=== PATIENT | female | born 1960 | race Caucasian/White ===

== ENCOUNTER → 2017-02-03 | Outpatient (CLI) | payer OTHER ==
[~2017-02-03] MED LIST: ASPIRIN LO-DOSE81 MG PO; CLARITIN10 M3 PO; CORDARONE,PACE200 MG PO; COREG25 MG PO; COUMADIN ** IA5 MG PO; COUMADIN **IA2.5 MG PO; COUMADIN6 MG PO; GLUCOPHAGE500 MG PO; HYZAAR 100-12.1 EACH PO; LEVOTHROID (S125 MCG PO; LEVOTHROID (S150 MCG PO; LIPITOR20 M1 PO; LOPRESSOR50 MG PO; ZOLOFT25 MG PO
== END | disposition disaster alternative care site (69) ==
LOC: GBCOE 09:30
DX: N63 Unspecified lump in breast (principal)
CPT/HCPCS: G0204; G0279

== ENCOUNTER → 2017-02-09 | Outpatient (CLI) | payer OTHER ==
[2017-02-09 16:44] LABS: BASOPHIL # 0.1 K/uL (0.0-0.2); BASOPHIL % 0.9 %; EOSINOPHIL # 0.2 K/uL (0.0-0.5); EOSINOPHIL % 3.5 %; HEMATOCRIT 38.2 % (33.0-46.0); HEMOGLOBIN 12.5 g/dL (10.0-15.0); IMMATURE GRANULOCYTE % 0.2 %; LYMPHOCYTE # 1.1 K/uL (0.8-4.0); LYMPHOCYTE % 20.5 %; MCH 31.5 pg (27.0-34.0); MCHC 32.7 gm/dL (32.0-36.5); MCV 96.2 fl (83.0-98.0); MONOCYTE # 0.4 K/uL (0.0-1.0); MONOCYTE % 7.3 %; MPV 11.7 fl (9.4-12.4); NEUTROPHIL # (ANC) 3.7 K/uL (1.8-7.8); NEUTROPHIL % 67.6 %; NRBC % 0 /100WBC (0-0.00); PLATELET COUNT 167 K/uL (150-450); RBC 3.97 M/uL (3.50-5.50); RDW-CV 14.9 % (11.9-14.6); WBC 5.5 K/uL (4.0-11.0)
[2017-02-09 16:57] LABS: ALBUMIN 4.3 gm/dL (3.5-5.0); ALK PHOS 76 IU/L (33-138); ALT 25 IU/L (12-78); ANION GAP 12.7 (10.0-19.0); AST 23 IU/L (10-40); BLOOD UREA NITROGEN 17 mg/dL (6-24); CALCIUM 9.6 mg/dL (8.5-10.5); CHLORIDE 103 mMol/L (96-110); CO2 27 mMol/L (22-32); CREATININE 0.9 mg/dL (0.5-1.1); ESTIMATED GFR (MDRD EQUATION) > 60; POTASSIUM 3.7 mMol/L (3.7-5.1); SODIUM 139 mMol/L (135-145); TOTAL PROTEIN 8.5 g/dL (6.0-8.4)
== END | disposition disaster alternative care site (69) ==
LOC: LNHI 16:35
PROVIDERS: Internal Medicine Interventional Cardiology
DX: Z95.2 Presence of prosthetic heart valve (principal); I48.3 Typical atrial flutter; I25.10 Atherosclerotic heart disease of native coronary artery without angina pectoris; I10 Essential (primary) hypertension

== ENCOUNTER → 2017-03-13 | Outpatient (CLI) | payer OTHER ==
[2017-03-13 14:55] LABS: INR - (THERAPEUTIC) 1.77 (0.92-1.07); PROTIME 18.7 SECONDS (9.8-11.4)
== END | disposition disaster alternative care site (69) ==
LOC: GLAB 14:28
PROVIDERS: Internal Medicine Interventional Cardiology
DX: I48.0 Paroxysmal atrial fibrillation (principal); Z95.2 Presence of prosthetic heart valve; Z79.01 Long term (current) use of anticoagulants

== ENCOUNTER → 2017-03-21 | Outpatient (CLI) | payer OTHER ==
[2017-03-21 14:13] LABS: INR - (THERAPEUTIC) 2.75 (0.92-1.07); PROTIME 29.2 SECONDS (9.8-11.4)
== END | disposition disaster alternative care site (69) ==
LOC: GLAB 12:00
PROVIDERS: Internal Medicine Interventional Cardiology
DX: I48.0 Paroxysmal atrial fibrillation (principal); Z95.2 Presence of prosthetic heart valve; Z79.01 Long term (current) use of anticoagulants

== ENCOUNTER → 2017-04-14 | Outpatient (CLI) | payer OTHER ==
[2017-04-14 13:37] LABS: INR - (THERAPEUTIC) 1.6 (0.92-1.07); PROTIME 16.9 SECONDS (9.8-11.4)
== END | disposition disaster alternative care site (69) ==
LOC: GLAB 12:59
PROVIDERS: Internal Medicine Interventional Cardiology
DX: Z51.81 Encounter for therapeutic drug level monitoring (principal); I48.0 Paroxysmal atrial fibrillation; Z95.2 Presence of prosthetic heart valve; Z79.01 Long term (current) use of anticoagulants

== ENCOUNTER → 2017-04-18 | Outpatient (CLI) | payer OTHER ==
[2017-04-18 13:26] LABS: INR - (THERAPEUTIC) 1.34 (0.92-1.07); PROTIME 14.1 SECONDS (9.8-11.4)
== END | disposition disaster alternative care site (69) ==
LOC: GLAB 11:28
PROVIDERS: Internal Medicine Interventional Cardiology
DX: I48.0 Paroxysmal atrial fibrillation (principal); Z95.2 Presence of prosthetic heart valve; Z79.01 Long term (current) use of anticoagulants

== ENCOUNTER → 2017-04-21 | Outpatient (CLI) | payer OTHER ==
[2017-04-21 11:12] LABS: INR - (THERAPEUTIC) 1.5 (0.92-1.07); PROTIME 15.8 SECONDS (9.8-11.4)
== END | disposition disaster alternative care site (69) ==
LOC: GLAB 10:00
PROVIDERS: Internal Medicine Interventional Cardiology
DX: Z51.81 Encounter for therapeutic drug level monitoring (principal); I48.3 Typical atrial flutter; Z95.2 Presence of prosthetic heart valve

== ENCOUNTER → 2017-04-24 | Outpatient (CLI) | payer OTHER ==
[2017-04-24 11:31] LABS: INR - (THERAPEUTIC) 2.89 (0.92-1.07); PROTIME 30.7 SECONDS (9.8-11.4)
== END | disposition disaster alternative care site (69) ==
LOC: GLAB 10:00
PROVIDERS: Internal Medicine Interventional Cardiology
DX: Z51.81 Encounter for therapeutic drug level monitoring (principal); I48.3 Typical atrial flutter; Z95.2 Presence of prosthetic heart valve; Z79.01 Long term (current) use of anticoagulants